=== PATIENT | female | born 1995 | race Caucasian/White ===

== ENCOUNTER 2018-05-31 18:48 | Emergency (ER) | payer OTHER ==
[2018-05-31 19:08] VITALS: BP 141/88
--- NOTE | 2018-05-31 20:11 | ER Document Report ---
ED Medical Screen (RME) - General Chief Complaint: Vaginal Bleeding Stated Complaint: CRAMPING Time Seen by Provider: 05/31/18 20:10 Mode of Arrival: Ambulatory Information source: Patient Notes: This is a 23-year-old female 2 para 1 (1 miscarriage in the past), last normal menstrual period 2 weeks ago presents to the emergency room with vaginal bleeding immediately after intercourse on Thursday. Patient states her bleeding is persistent since that time. She denies any abdominal pain. She states that immediately after intercourse, she felt a gush when she got up and there was noticeable blood. The bleeding was worse at that time. It has since slowed up somewhat. She is currently on no medicines. No allergies to medicines. She does have an allergy to shellfish. TRAVEL OUTSIDE OF THE [place] IN LAST 30 DAYS: No - Related Data Allergies/Adverse Reactions: shellfish derived Allergy (Verified 05/31/18 18:51) Physical Exam - Vital signs Vitals: Temp Pulse Resp BP Pulse Ox 98.6 F 88 12 141/88 H 99 05/31/18 19:08 05/31/18 19:08 05/31/18 19:08 05/31/18 19:08 05/31/18 19:08 Course - Vital Signs Vital signs: Temp Pulse Resp BP Pulse Ox 98.6 F 88 12 141/88 H 99 05/31/18 19:08 05/31/18 19:08 05/31/18 19:08 05/31/18 19:08 05/31/18 19:08
[2018-05-31 20:40] LABS: ABSOLUTE BASOPHILS # (AUTO) 0.1 10^3/uL (0.0-0.2); ABSOLUTE EOSINOPHILS # (AUTO) 0.3 10^3/uL (0.0-0.6); ABSOLUTE LYMPHOCYTES (AUTO) 4.2 10^3/uL (0.5-4.7); ABSOLUTE MONOCYTES (AUTO) 0.8 10^3/uL (0.1-1.4); ABSOLUTE NEUT (AUTO) 7.4 10^3/uL (1.7-8.2); BASOPHILS % (AUTO) 0.6 % (0-2); HEMATOCRIT 42.3 % (36.0-47.0); HEMOGLOBIN 14.5 g/dL (12.0-15.5); LYMPHOCYTES % (AUTO) 33.4 % (13-45); MEAN CORPUSCULAR HEMOGLOBIN 28.5 pg (27.0-33.4); MEAN CORPUSCULAR HGB CONC 34.3 g/dL (32.0-36.0); MEAN CORPUSCULAR VOLUME 83 fl (80-97); MONOCYTES % (AUTO) 5.9 % (3-13); PLATELET COUNT 356 10^3/uL (150-450); RED BLOOD COUNT 5.08 10^6/uL (3.72-5.28); RED CELL DISTRIBUTION WIDTH 12.6 % (11.5-14.0); SEGMENTED NEUTROPHILS % (AUTO) 58.1 % (42-78); TOTAL CELLS COUNTED % (AUTO) 100 %; WHITE BLOOD COUNT 12.7 10^3/uL (4.0-10.5)
[2018-05-31 21:07] LABS: APPEARANCE,URINE CLEAR; BILIRUBIN,URINE NEGATIVE (NEGATIVE); COLOR,URINE STRAW; GLUCOSE, URINE NEGATIVE (NEGATIVE); KETONES,URINE NEGATIVE (NEGATIVE); LEUKOCYTE ESTERASE,URINE TRACE (NEGATIVE); NITRITE,URINE NEGATIVE (NEGATIVE); PROTEIN,URINE NEGATIVE (NEGATIVE); URINE SPECIFIC GRAVITY 1.008; UROBILINOGEN,URINE NEGATIVE mg/dL (<2.0)
--- NOTE | 2018-05-31 21:34 | ER Document Report ---
ED GI/ - General Chief Complaint: Vaginal Bleeding Stated Complaint: CRAMPING Time Seen by Provider: 05/31/18 20:10 Mode of Arrival: Ambulatory Notes: Patient is a 23-year-old female that comes to the emergency department for chief complaint of vaginal bleeding and cramping. She had a period 2 weeks ago , she is normally very regular. She states that she started bleeding immediately after intercourse 2 days ago. Bleeding has significantly reduced. She reports some abdominal/pelvic pain on both sides. She denies nausea or vomiting, fever chills, discharge, dysuria, flank pain. She denies any daily medications, denies any surgeries. twice, one miscarriage. She does have a history of ovarian cysts. TRAVEL OUTSIDE OF THE [place] IN LAST 30 DAYS: No - Related Data Allergies/Adverse Reactions: shellfish derived Allergy (Verified 05/31/18 20:13) Past Medical History - General Information source: Patient - Social History Smoking Status: Never Smoker Chew tobacco use (# tins/day): No Frequency of alcohol use: Occasional Drug Abuse: None Lives with: Family Family History: Reviewed & Not Pertinent Patient has suicidal ideation: No Patient has homicidal ideation: No Renal/ Medical History: Reports: Hx Ovarian Cysts. Denies: Hx Peritoneal Dialysis Surgical Hx: Negative - Immunizations Immunizations up to date: Yes Hx Diphtheria, Pertussis, Tetanus Vaccination: Yes Review of Systems - Review of Systems Constitutional: No symptoms reported EENT: No symptoms reported Cardiovascular: No symptoms reported Respiratory: No symptoms reported Gastrointestinal: See HPI Genitourinary: See HPI Female Genitourinary: See HPI Musculoskeletal: No symptoms reported Skin: No symptoms reported Hematologic/Lymphatic: No symptoms reported Neurological/Psychological: No symptoms reported Physical Exam - Vital signs Vitals: Temp Pulse Resp BP Pulse Ox 98.6 F 88 12 141/88 H 99 05/31/18 19:08 05/31/18 19:08 05/31/18 19:08 05/31/18 19:08 05/31/18 19:08 - Notes Notes: GENERAL: Alert, interacts well. No acute distress. HEAD: Normocephalic, atraumatic. EYES: Pupils equal, round, and reactive to light. Extraocular movements intact. ENT: Oral mucosa moist, tongue midline. Oropharynx unremarkable. Airway patent. Nares patent, no nasal septal hematoma, TM's intact. NECK: Full range of motion. Supple. Trachea midline. LUNGS: Clear to auscultation bilaterally, no wheezes, rales, or rhonchi. No respiratory distress. HEART: Regular rate and rhythm. No murmur ABDOMEN: Soft, non-tender. Non-distended. Bowel sounds present in all 4 quadrants. GENITOURINARY: No current bleeding, no discharge, no pain, no signs of trauma, no concerning outer mildly externally or internally noted. Exam performed with newly PCT at bedside. EXTREMITIES: Moves all 4 extremities spontaneously. No edema, normal radial and dorsalis pedis pulses bilaterally. No cyanosis. BACK: no cervical, thoracic, lumbar midline tenderness. No saddle anesthesia, normal distal neurovascular exam. NEUROLOGICAL: Alert and oriented x3. Normal speech. [cranial nerves II through XII grossly intact]. PSYCH: Normal affect, normal mood. SKIN: Warm, dry, normal turgor. No rashes or lesions noted. Course - Re-evaluation Re-evalutation: CBC, urinalysis, hCG unremarkable. Pelvic examination unremarkable. Ultrasound unremarkable. No obvious source of patient's dysfunctional uterine bleeding. Because she is not heavily bleeding at this time and the bleeding has slowed down after discussion decision was made to not place her on hormone as therapy. Discussed follow-up, expectations, return precautions in detail. Patient states understanding and agreement. - Vital Signs Vital signs: Temp Pulse Resp BP Pulse Ox 98.6 F 88 16 141/88 H 99 05/31/18 19:08 05/31/18 19:08 05/31/18 20:05 05/31/18 19:08 05/31/18 19:08 - Laboratory Result Diagrams: 05/31/18 20:29 Laboratory results interpreted by me: 05/31/18 05/31/18 19:11 20:29 WBC 12.7 H Urine Blood SMALL H Ur Leukocyte Esterase TRACE H Discharge - Discharge Clinical Impression: Vaginal bleeding, Pelvic pain Condition: Stable Disposition: HOME, SELF-CARE Additional Instructions: Dysfunctional Uterine Bleeding You're having an abnormal pattern of bleeding from the uterus. We call this dysfunctional uterine bleeding. It is most often caused by a hormone imbalance. Most often this is temporary and no cause is found. There's no evidence of , tumors, or infection as a cause. Dysfunctional uterine bleeding is especially common at times when the normal menstrual cycle is disturbed -- whether by recent , use of control pills or hormones, or impending menopause. Some medical problems lead to dysfunctional bleeding, such as obesity or being very underweight, stress, or thyroid problems. In many cases, the menstrual cycle will return to normal without any treatment. Where the bleeding is significant, high-dose estrogen will usually stop the bleeding within a day of two. A cycle or two of hormones ( control pills) can help restore the uterus to normal. In some patients where bleeding is severe or resistant to treatment, a D&C is required. A endometrial biopsy (a sample of the inside of the uterus) may be recommended for some older women. This would be done by a gynecology specialist. Treatment for anemia may be required if bleeding is severe. You should rest and avoid intercourse until the bleeding is controlled. Call the doctor or return for re-examination if you feel faint, have increasing pain, or have a major increase in the amount of bleeding. Prescriptions: Ketorolac Tromethamine [Toradol 10 mg Tablet] 10 mg PO Q8HP PRN #24 tablet PRN Reason:
--- NOTE | 2018-05-31 22:40 | RADIOLOGY REPORT (SQ) ---
EXAM DESCRIPTION: US TRANSVAGINAL COMPLETED DATE/TME: 05/31/2018 21:30 CLINICAL HISTORY: 23 years, Female, pelvic pain, irregular bleeding Findings: The uterus measures 8.1 x 4.5 x 4.8 cm. Endometrium measures 1.1 cm. Cervix is within normal limits. The right ovary measures 2.6 x 2.3 x 2.8 cm. Left ovary measures 1.8 x 1.4 x 1.4 cm. Ovaries demonstrate bilateral follicles. No abnormal adnexal masses. No free fluid in the cul-de-sac. Vascular flow preserved within both ovaries on color and spectral Doppler imaging. IMPRESSION: No abnormal adnexal masses.
[2018-05-31 22:57] LABS: RBCS (WET MOUNT) RARE RBCS SEEN; T.VAGINALIS (WET MOUNT) NO TRICHOMONAS SEEN; WBCS (WET MOUNT) 1+ WBCS SEEN; YEAST (WET MOUNT) NO YEAST SEEN
[2018-06-01 00:16] LABS: CHLAM PCR NOT DETECTED (NOT DETECT); GON PCR NOT DETECTED (NOT DETECT)
== END 2018-05-31 23:45 | disposition home or self-care (01) ==
LOC: ER 18:48
DX: N93.9 Abnormal uterine and vaginal bleeding, unspecified (principal); R10.2 Pelvic and perineal pain
CPT/HCPCS: 36415; 76830; 81001; 84702; 85025; 87210; 87491; 87591; 93976; 99284